=== PATIENT | male | born 2005 | race Hispanic/Latino ===

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

== ENCOUNTER 2024-05-29 18:24 | Emergency (ER) | payer OTHER ==
[~2024-05-29] VITALS: Ht 177.8 cm; Wt 102.1 kg
[~2024-05-29 18:24] MED LIST changes: +BROMFED DM COU118 ML PO; +IBUPROFEN800 MG PO; +ONDANSETRON ODT4 MG PO; +PREDNISONE20 MG PO; +PROAIR DIGIHAL90 MCG INH
[2024-05-29 21:38] VITALS: PULSE 65; RESP 16; TEMP 98.2; O2SAT 100
== END 2024-05-29 22:00 | disposition home or self-care (01) ==
LOC: ER 19:58
DX: S93.491A Sprain of other ligament of right ankle, initial encounter (principal); S80.211A Abrasion, right knee, initial encounter; X50.1XXA Overexertion from prolonged static or awkward postures, initial encounter; Y93.01 Activity, walking, marching and hiking; Y92.89 Other specified places as the place of occurrence of the external cause
CPT/HCPCS: 99283